=== PATIENT | male | born 1990 | race Caucasian/White ===

== ENCOUNTER 2017-09-04 03:11 | Emergency (ER) | payer OTHER ==
[~2017-09-04] VITALS: Ht 185.4 cm; Wt 102.3 kg
[2017-09-04 03:20] VITALS: TEMP 97.6
[2017-09-04 04:05] VITALS: BP 117/53; PULSE 83
== END 2017-09-04 04:05 | disposition home or self-care (01) ==
LOC: COL.ER 03:11
DX: F10.129 Alcohol abuse with intoxication, unspecified (principal); R11.2 Nausea with vomiting, unspecified